=== PATIENT | male | born 1960 | race Caucasian/White ===

== ENCOUNTER 2016-12-23 08:06 | Emergency (ER) | payer SELFPAY ==
[~2016-12-23] VITALS: Ht 188 cm; Wt 100.0 kg
[~2016-12-23 08:06] MED LIST: ADVI200C9 PO
[2016-12-23 08:08] VITALS: BP 123/70; PULSE 82; RESP 20; TEMP 97.8; O2SAT 99
--- NOTE | 2016-12-23 08:28 | PD ---
HPI Chief Complaint: Complaint Time Seen by Provider: 08:16 Travel History International Travel<30 days: No Contact w/Intl Traveler<30days: No Traveled to known affect area: No History of Present Illness HPI 56-year-old male complains of hematuria. Patient states that he started having hematuria weeks ago. Patient states that he was passing bright red bloody urine as morning. Patient states that he has history of chronic back pain for the past years old and is not new. Patient states that the back pain localized to right low back area. Patient denies any fever chills. Patient denies any dysuria or frequency. Patient denies abdominal pain. Patient denies any nausea vomiting. Patient denies any medical problem. Patient states that he takes Advil for the back pain. PFSH Past Medical History Cancer: No Cardiovascular Problems: No Diabetes: No Endocrine: No Genitourinary: No Hepatitis: No Hiatal Hernia: No Immune Disorder: No Musculoskeletal: No Neurologic: No Psychiatric: No Reproductive: No Respiratory: No Thyroid Disease: No Past Surgical History Abdominal Surgery: Yes (UNKNOWN PROCEDURE INFANT) AICD: No Joint Replacement: No Pacemaker: No Social History Tobacco Use: No Substance Use: No Allergies-Medications (Allergen,Severity, Reaction): Coded Allergies: No Known Allergies (Unverified , 12/23/16) Reported Meds & Prescriptions Reported Meds & Active Scripts Active Reported Advil (Ibuprofen) 200 Mg Cap 400 Mg PO Q6 PRN Review of Systems General / Constitutional: No: Fever Eyes: No: Visual changes HENT: No: Headaches Cardiovascular: No: Chest Pain or Discomfort Respiratory: No: Shortness of Breath Gastrointestinal: No: Abdominal Pain Genitourinary: Positive: Hematuria, No: Dysuria Musculoskeletal: No: Pain Skin: No Rash Neurologic: No: Weakness Psychiatric: No: Depression Endocrine: No: Polydipsia Hematologic/Lymphatic: No: Easy Bruising Physical Exam Narrative GENERAL: Well-nourished, well-developed patient. SKIN: Focused skin assessment warm/dry. HEAD: Normocephalic. EYES: No scleral icterus. No injection or drainage. NECK: Supple, trachea midline. No JVD or lymphadenopathy. CARDIOVASCULAR: Regular rate and rhythm without murmurs, gallops, or rubs. RESPIRATORY: Breath sounds equal bilaterally. No accessory muscle use. GASTROINTESTINAL: Abdomen soft, non-tender, nondistended. MUSCULOSKELETAL: No cyanosis, or edema. BACK: Moderate tenderness on palpation right lower lumbar area, without obvious deformity. No CVA tenderness. Neurologic exam normal. Data Data Last Documented VS Vital Signs Date Time Temp Pulse Resp B/P Pulse Ox O2 Delivery O2 Flow Rate FiO2 12/23/16 13:29 98.6 90 16 146/82 98 12/23/16 09:02 Room Air Orders Complete Blood Count With Diff (12/23/16 08:28) Comprehensive Metabolic Panel (12/23/16 08:28) Prothrombin Time / Inr (Pt) (12/23/16 08:28) Act Partial Throm Time (Ptt) (12/23/16 08:28) Urinalysis - C+S If Indicated (12/23/16 08:28) Chest, Single Ap (12/23/16 08:28) Ct Abd/Pel W Iv Contrast(Rout) (12/23/16 08:28) Iv Access Insert/Monitor (12/23/16 08:28) Ecg Monitoring (12/23/16 08:28) Oximetry (12/23/16 08:28) Urine Culture (12/23/16 08:30) Iohexol 350 Inj (Omnipaque 350 Inj) (12/23/16 10:06) Labs Laboratory Tests Test 12/23/16 08:30 White Blood Count 10.3 TH/MM3 Red Blood Count 4.22 MIL/MM3 Hemoglobin 13.9 GM/DL Hematocrit 40.1 % Mean Corpuscular Volume 95.0 FL Mean Corpuscular Hemoglobin 32.9 PG Mean Corpuscular Hemoglobin 34.6 % Concent Red Cell Distribution Width 12.8 % Platelet Count 257 TH/MM3 Mean Platelet Volume 9.1 FL Neutrophils (%) (Auto) 73.8 % Lymphocytes (%) (Auto) 17.7 % Monocytes (%) (Auto) 5.7 % Eosinophils (%) (Auto) 2.1 % Basophils (%) (Auto) 0.7 % Neutrophils # (Auto) 7.6 TH/MM3 Lymphocytes # (Auto) 1.8 TH/MM3 Monocytes # (Auto) 0.6 TH/MM3 Eosinophils # (Auto) 0.2 TH/MM3 Basophils # (Auto) 0.1 TH/MM3 CBC Comment DIFF FINAL Differential Comment Prothrombin Time 10.8 SEC Prothromb Time International 1.0 RATIO Ratio Activated Partial 30.8 SEC Thromboplast Time Urine Color YELLOW Urine Turbidity CLEAR Urine pH 5.5 Urine Specific [place] 1.022 Urine Protein 30 mg/dL Urine Glucose (UA) NEG mg/dL Urine Ketones NEG mg/dL Urine Occult Blood LARGE Urine Nitrite NEG Urine Bilirubin NEG Urine Urobilinogen 2.0 MG/DL Urine Leukocyte Esterase TRACE Urine RBC 60 /hpf Urine WBC 11 /hpf Urine Squamous Epithelial <1 /hpf Cells Urine Bacteria OCC /hpf Urine Mucus FEW /lpf Microscopic Urinalysis Comment CULTURE INDICATED Sodium Level 141 MEQ/L Potassium Level 3.8 MEQ/L Chloride Level 109 MEQ/L Carbon Dioxide Level 25.5 MEQ/L Anion Gap 7 MEQ/L Blood Urea Nitrogen 17 MG/DL Creatinine 1.39 MG/DL Estimat Glomerular Filtration 53 ML/MIN Rate Random Glucose 105 MG/DL Calcium Level 9.0 MG/DL Total Bilirubin 0.2 MG/DL Aspartate Amino Transf 18 U/L (AST/SGOT) Alanine Aminotransferase 26 U/L (ALT/SGPT) Alkaline Phosphatase 84 U/L Total Protein 7.5 GM/DL Albumin 3.5 GM/DL MDM Medical Decision Making Medical Screen Exam Complete: Yes Emergency Medical Condition: Yes Interpretation(s) Last Impressions Chest X-Ray 12/23/16827 Signed Impressions: Service Date/Time: Friday, December 23, 2016 08:34 - CONCLUSION: No acute disease. Vinod Tsai MD Abdomen/Pelvis CT 12/23/16827 Signed Impressions: Service Date/Time: Friday, December 23, 2016 09:52 - CONCLUSION: 1. 1.1 x 1.4 cm mass and thickening of the anterior left side of the bladder wall suspicious for malignancy. 2. Atrophic right kidney with cortical scarring. Cayden Mccullough MD 11:31 AM. CBC within normal limit. CMP within normal limit. UA positive for WBC RBC and bacteria. Differential Diagnosis Differential diagnosis including nephrolithiasis, pyelonephritis, hemorrhagic cystitis, mass lesion. Narrative Course 56-year-old male with hematuria and right low back pain. I spoke with Dr. Danielson, urologist marketing automation specialist. Advised to follow up with him the office. Diagnosis Primary Impression: Hematuria Additional Impression: Bladder mass Patient Instructions: General Instructions Additional Instructions: Advised patient to follow-up with urologist, Dr. Danielson in the office. Patient advised to call patient assistance program for help. Encourage by mouth fluid. Return if unable to urinate. Med/Other Pt SpecificInfo: No Meds Exist/No RX given Disposition: 01 DISCHARGE HOME Condition: Stable Sagar Camara MD Dec 23, 2016 08:28 Sagar Camara MD Dec 23, 2016 08:28
[2016-12-23 08:50] LABS: AUTOMATED NEUTROPHIL # 7.6 TH/MM3 (1.8-7.7); BASOPHIL # 0.1 TH/MM3 (0-0.2); BASOPHIL % 0.7 % (0.0-2.0); EOSINOPHIL # 0.2 TH/MM3 (0-0.4); EOSINOPHIL % 2.1 % (0.0-4.0); HEMATOCRIT 40.1 % (39.0-51.0); HEMO FLAGS DIFF FINAL; LYMPH % 17.7 % (9.0-44.0); LYMPHOCYTE # 1.8 TH/MM3 (1.0-4.8); MEAN CORPUSCULAR HEMOGLOBIN 32.9 PG (27.0-34.0); MEAN CORPUSCULAR HGB CONC 34.6 % (32.0-36.0); MONO % 5.7 % (0.0-8.0); NEUT % 73.8 % (16.0-70.0); PLATELET COUNT 257 TH/MM3 (150-450); RED BLOOD COUNT 4.22 MIL/MM3 (4.50-5.90); RED CELL DISTRIBUTION WIDTH 12.8 % (11.6-17.2); WHITE BLOOD COUNT 10.3 TH/MM3 (4.0-11.0)
[2016-12-23 08:59] LABS: BACTERIA, URINE OCC /hpf; BLOOD, URINE LARGE (NEG); COMMENT (UR) CULTURE INDICATED; CULTURE IF INDICATED CULTURE INDICATED; GLUCOSE,URINE NEG (NEG); KETONE, URINE NEG (NEG); MUCUS URINE FEW /lpf (OCC); NITRITE,URINE NEG (NEG); PH, URINE 5.5 (5.0-8.5); SQUAMOUS EPITHELIAL CELL URINE <1 /hpf (0-5); URINE COLOR YELLOW (YELLW/STRAW)
[2016-12-23 09:02] VITALS: O2SAT 97
[2016-12-23 09:02] LABS: APTT (PATIENT) 30.8 SEC (24.3-30.1); PROTHROMBIN TIME - PATIENT 10.8 SEC (9.8-11.6)
--- NOTE | 2016-12-23 09:06 | RADRPT ---
EXAM DATE/TIME: 12/23/2016 08:34 [facility] COMPARISON: No previous studies available for comparison. INDICATIONS : Patient is short of breath and urinating blood. MEDICAL HISTORY : None. SURGICAL HISTORY : None. ENCOUNTER: Initial ACUITY: 1 day PAIN SCORE: 0/10 LOCATION: Bilateral chest FINDINGS: A single view of the chest demonstrates the lungs to be symmetrically aerated without evidence of mas s, infiltrate or effusion. The cardiomediastinal contours are unremarkable. Osseous structures are intact. CONCLUSION: No acute disease. Vinod Tsai MD on December 23, 2016 at 9:00 Board Certified Radiologist. This report was verified electronically.
[2016-12-23 09:09] LABS: ALT (GPT) 26 U/L (12-78); ANION GAP 7 MEQ/L (5-15); AST (GOT) 18 U/L (15-37); BICARBONATE 25.5 MEQ/L (21.0-32.0); BLOOD UREA NITROGEN 17 MG/DL (7-18); CHLORIDE 109 MEQ/L (98-107); GLOMERULAR FILTRATION RATE 53 ML/MIN (>89); POTASSIUM 3.8 MEQ/L (3.5-5.1); SODIUM (NA) 141 MEQ/L (136-145)
[2016-12-23 09:12] LABS: ALKALINE PHOSPHATASE 84 U/L (45-117); TOTAL BILIRUBIN ADULT 0.2 MG/DL (0.2-1.0)
[2016-12-23] MEDS ORDERED: IOHEXOL 350 MG/ML 10 ML VIAL (for RAD DIAG) IV ONE (10:06)
--- NOTE | 2016-12-23 10:41 | RADRPT ---
EXAM DATE/TIME: 12/23/2016 09:52 [facility] COMPARISON: No previous studies available for comparison. INDICATIONS : Hematuria and right flank pain for 2 weeks IV CONTRAST: 97 cc Omnipaque 350 (iohexol) IV ORAL CONTRAST: No oral contrast ingested. RADIATION DOSE: 12.33 CTDIvol (mGy) MEDICAL HISTORY : Gastroesophageal reflux disease. SURGICAL HISTORY : None. ENCOUNTER: Initial ACUITY: 2 weeks PAIN SCALE: 6/10 LOCATION: Right flank pain. TECHNIQUE: Volumetric scanning of the abdomen and pelvis was performed. Using automated exposure control and ad justment of the mA and/or kV according to patient size, radiation dose was kept as low as reasonably achievable to obtain optimal diagnostic quality images. DICOM format image data is available electro nically for review and comparison. FINDINGS: The limited portion of the lung base visualized is clear. The appearance of the liver, spleen, pancreas and adrenal glands is within normal limits. The left kidney is normal in size. No stones are seen. The right kidney is somewhat smaller than the left. There is scarring of the renal cortex. There is no hydronephrosis. No stones are seen. The abdominal aorta is normal in caliber. There is no retroperitoneal lymphadenopathy. Imaging through the pelvis demonstrate an area of abnormal thickening of the anterior and left side o f the bladder wall with a small enhancing mass measuring 1.4 x 1.1 cm. This is suspicious for maligna ncy. Cystoscopy is warranted for further assessment. There is no iliac or inguinal adenopathy. No free fluid is seen within the pelvis. The visualized loo ps of small and large bowel are unremarkable. The visualized bony structures demonstrate degenerative changes but are otherwise intact. CONCLUSION: 1. 1.1 x 1.4 cm mass and thickening of the anterior left side of the bladder wall suspicious for tawnya gnancy. 2. Atrophic right kidney with cortical scarring. Cayden Mccullough MD on December 23, 2016 at 10:32 Board Certified Radiologist. This report was verified electronically.
[2016-12-23 13:29] VITALS: BP 146/82; TEMP 98.6
== END 2016-12-23 13:25 | disposition home or self-care (01) ==
LOC: NEPE 08:06
DX: R31.9 Hematuria, unspecified (principal); N32.9 Bladder disorder, unspecified
CPT/HCPCS: 71010; 74177; 80053; 81001; 85025; 85610; 85730; 87086; 99285; Q9967